=== PATIENT | male | born 1960 | race Caucasian/White ===

== ENCOUNTER 2023-08-20 08:49 | Emergency (ER) | payer BC, SELFPAY ==
[2023-08-20 08:52] VITALS: BP 107/79; PULSE 125; RESP 20; TEMP 36.9; O2SAT 97; BMI 30.3
--- NOTE | 2023-08-20 09:13 | ED.GENADUL1 ---
HPI - General Adult General Chief complaint: Skin/Abscess/Foreign Body Stated complaint: RASH Time Seen by Provider: 08/20/23 09:03 Source: patient Mode of arrival: walk-in Limitations: no limitations History of Present Illness HPI narrative: patient developed a rash in the groin. On his own, he took left over clindamycin 300mg 2 nights ago. The next morning he woke with a head to toe red rash. He took a couple of Benadryl without change. This morning when the rash was still present he took a dose of his epipen and then came to the ED. No throat swelling, trouble breathing or talking or swallowing. No shortness of breath. Rash around the groin - he has been applying gold dawson and neosporin topically since yesterday without any improvement. Related Data Home Medications Medication Instructions Recorded Confirmed hydroxyzine HCl 25 mg tablet 25 mg PO DAILY PRN anxiety 08/20/23 08/20/23 pregabalin 75 mg capsule 75 mg PO Q12H 08/20/23 08/20/23 rosuvastatin 10 mg tablet 10 mg PO DAILY 08/20/23 08/20/23 zolpidem 12.5 mg tablet,extended 12.5 mg PO BEDTIME 08/20/23 08/20/23 release,multiphase Previous Rx's Medication Instructions Recorded clotrimazole 1 % topical cream 1 applic topical BID 2 weeks #45 08/20/23 grams fluconazole 200 mg tablet 200 mg PO ONCE #1 tab 08/20/23 (Diflucan) prednisone 20 mg tablet 40 mg (2 x 20 mg) PO DAILY 7 days 08/20/23 #14 tabs Allergies Allergy/AdvReac Type Severity Reaction Status Date / Time NSAIDS (Non-Steroidal Allergy Severe Hives Verified 08/20/23 09:01 Anti-Inflamma Penicillins Allergy Severe Verified 08/20/23 09:01 [facility] Social History Smoking status: Heavy tobacco smoker Exam Narrative Exam Narrative: Nurses notes and vital signs reviewed and patient is not hypoxic. afebrile General: Well-appearing and in no apparent distress. Skin: Warm, dry, no pallor noted. Diffuse confluent erythematous rash. In the proximal thighs/groin he has tineal rash with some excoriation. Head: Normocephalic, atraumatic. Eye: Pupils are equal, round and EOMI. No scleral icterus. Ears, Nose, Mouth, and Throat: No airway compromise. Oral mucosa is moist Cardiovascular: Tachycardia. Respiratory: No accessory muscle use or respiratory distress. Lungs are clear to auscultation, no wheezing, rales or rhonchi Musculoskeletal: normal ROM GI: Abdomen is soft, non-distended. Normal bowel sounds. No tenderness to palpation. No rebound, guarding, or rigidity noted. Neurological: A&O x4. No cranial nerve dysfunction observed. No truncal ataxia. Moves all extremities. Sensation intact. Psychiatric: Cooperative and interactive. Normal mood and affect. Constitutional Vital Signs, click to edit/add: Last Vital Signs Temp 98.4 F 08/20/23 08:52 Pulse 125 H 08/20/23 08:52 Resp 20 08/20/23 08:52 BP 107/79 08/20/23 08:52 Pulse Ox 97 08/20/23 08:52 Course Vital Signs Vital signs: Vital Signs Temperature 98.4 F 08/20/23 08:52 Pulse Rate 125 H 08/20/23 08:52 Respiratory Rate 20 08/20/23 08:52 Blood Pressure 107/79 08/20/23 08:52 Pulse Oximetry 97 08/20/23 08:52 Temperature 98.4 F 08/20/23 08:52 Pulse Rate 125 H 08/20/23 08:52 Respiratory Rate 20 08/20/23 08:52 Blood Pressure 107/79 08/20/23 08:52 Pulse Oximetry 97 08/20/23 08:52 Medical Decision Making MDM Narrative Medical decision making narrative: Patient given IM Solumedrol and oral Benadryl in the ED. He was instructed to stop clindamycin and stop applying gold dawson or neopsorin to tineal rash in groin. He was given prescriptions for prednisone, topical clotrimazole and a single dose of diflucan. He was instructed to see his PCP for follow up. ED return if he worsens. Discharge Plan Discharge Chief Complaint: Skin/Abscess/Foreign Body Clinical Impression: Tinea cruris, Allergic reaction to drug Patient Disposition: Home, Self-Care Time of Disposition Decision: 09:09 Prescriptions / Home Meds: New prednisone 20 mg tablet 40 mg PO DAILY 7 Days Qty: 14 0RF fluconazole [Diflucan] 200 mg tablet 200 mg PO ONCE Qty: 1 0RF clotrimazole 1 % cream 1 applic topical BID 14 Days Qty: 45 0RF Rx Instructions: apply to affected area of groin No Action hydroxyzine HCl 25 mg tablet 25 mg PO DAILY PRN (Reason: anxiety) pregabalin 75 mg capsule 75 mg PO Q12H rosuvastatin 10 mg tablet 10 mg PO DAILY zolpidem 12.5 mg tablet,ext release multiphase 12.5 mg PO BEDTIME Stand Alone Forms: Portal Instructions Referrals: MARIPOSA TRAMMELL [Primary Care Provider] - 1 week
[2023-08-20] MEDS: METHYLPREDNISOLONE SOD SUCC PF 125 MG/2 ML VIAL IM (09:14)
[2023-08-20] MEDS: DIPHENHYDRAMINE HCL 25 MG CAPSULE 50 MG PO (09:14)
== END 2023-08-20 09:29 | disposition home or self-care (01) ==
PROVIDERS: Emergency Provider Emergency Medicine; Family Provider Family Medicine; PCP Family Medicine
DX: B35.6 Tinea cruris (principal); T50.905A Adverse effect of unspecified drugs, medicaments and biological substances, initial encounter; F17.210 Nicotine dependence, cigarettes, uncomplicated; Z79.899 Other long term (current) drug therapy
CPT/HCPCS: 96372; 99284; J2930